=== PATIENT | female | born 2000 | race Caucasian/White ===

== ENCOUNTER 2021-10-18 14:28 | Emergency (ER) | payer SELFPAY ==
[~2021-10-18] VITALS: Ht 175.3 cm; Wt 108.9 kg
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
[2021-10-18] MEDS ORDERED: IBUPROFEN 600 MG TABLET ONE (15:20)
[2021-10-18] MEDS ORDERED: IBUPROFEN 600 MG TABLET PO ONE (15:30)
[2021-10-18] MEDS ORDERED: IBUP-1957 PO (15:47)
--- NOTE | 2021-10-18 15:56 | NUR ---
Patient discharged to home in stable condition. Written and verbal after care instructions given. Patient verbalizes understanding of instruction.
[2021-10-18 17:49] VITALS: BP 132/72
== END 2021-10-18 15:56 | disposition home or self-care (01) ==
LOC: ER 14:35
DX: S42.001A Fracture of unspecified part of right clavicle, initial encounter for closed fracture (principal); D64.9 Anemia, unspecified; G43.909 Migraine, unspecified, not intractable, without status migrainosus; V49.49XA Driver injured in collision with other motor vehicles in traffic accident, initial encounter; Y93.89 Activity, other specified; Y92.413 State road as the place of occurrence of the external cause; Y99.8 Other external cause status
CPT/HCPCS: 73030-TC; 73090-TC